=== PATIENT | female | born 1970 | race Caucasian/White ===

== ENCOUNTER → 2016-06-16 | Outpatient (CLI) | payer BC ==
--- NOTE | 2016-06-17 07:44 | MM ---
Reason for exam: screening (asymptomatic). Last mammogram was performed 1 year and 4 months ago. History: Taking hormonal contraceptives for 18 years. Physical Findings: A clinical breast exam by your physician is recommended on an annual basis and results should be correlated with mammographic findings. MG Screening Mammo w CAD Bilateral CC and MLO view(s) were taken. Prior study comparison: February 18, 2015, bilateral MG screening mammo w CAD. January 31, 2008, bilateral digital screening mammogram. There are scattered fibroglandular densities. There is no discrete abnormality. No significant changes when compared with prior studies. ASSESSMENT: Negative, BI-RAD 1 RECOMMENDATION: Routine screening mammogram of both breasts in 1 year.
== END | disposition home or self-care (01) ==
LOC: RADMAMWWP 09:23
PROVIDERS: ATTEND Family Medicine
DX: Z12.31 Encounter for screening mammogram for malignant neoplasm of breast (principal)

== ENCOUNTER → 2016-07-04 | Outpatient (CLI) | payer BC ==
--- NOTE | 2016-07-04 11:02 | FL ---
EXAMINATION TYPE: FL barium swallow DATE OF EXAM: 07/04/2016 10:53 AM COMPARISON: NONE HISTORY: Dysphasia TECHNIQUE: Fluoroscopy. FINDINGS: Barium and air was swallowed without difficulty and passed and the esophagus without delay. Esophageal peristalsis and motility was normal. There is no evidence of hiatal hernia. No filling def ect or mucosal lesion identified. Upper esophagus demonstrated a prominent posterior impression likely related to cricopharyngeal muscl e at the C5-6 level. No evidence of gastroesophageal reflux. IMPRESSION: 1. No acute process. Prominent cricopharyngeus muscle results in posterior impression of the esophagu s as discussed above.
== END ==
LOC: RADFLWHC 10:13
PROVIDERS: ATTEND Family Medicine
DX: R13.10 Dysphagia, unspecified (principal)
CPT/HCPCS: 74220

== ENCOUNTER → 2017-08-07 | Outpatient (CLI) | payer BC ==
--- NOTE | 2017-08-08 11:34 | MM ---
Reason for exam: screening (asymptomatic). Last mammogram was performed 1 year and 2 months ago. History: Taking hormonal contraceptives for 18 years. Physical Findings: A clinical breast exam by your physician is recommended on an annual basis and results should be correlated with mammographic findings. MG Screening Mammo w CAD Bilateral CC and MLO view(s) were taken. Prior study comparison: June 16, 2016, bilateral MG screening mammo w CAD. February 18, 2015, bilateral MG screening mammo w CAD. There are scattered fibroglandular densities. No suspicious abnormality. No significant changes when compared with prior studies. ASSESSMENT: Negative, BI-RAD 1 RECOMMENDATION: Routine screening mammogram of both breasts in 1 year.
== END | disposition home or self-care (01) ==
LOC: RADMAMWWP 10:12
PROVIDERS: ATTEND Family Medicine
DX: Z12.31 Encounter for screening mammogram for malignant neoplasm of breast (principal)
CPT/HCPCS: 77067

== ENCOUNTER → 2018-09-06 | Outpatient (CLI) | payer BC ==
--- NOTE | 2018-09-07 12:40 | MM ---
Reason for exam: screening (asymptomatic). Last mammogram was performed 1 year and 1 month ago. History: Taking hormonal contraceptives for 18 years. Physical Findings: A clinical breast exam by your physician is recommended on an annual basis and results should be correlated with mammographic findings. MG 3D Screening Mammo W/Cad Bilateral CC and MLO view(s) were taken. Prior study comparison: August 07, 2017, bilateral MG screening mammo w CAD. June 16, 2016, bilateral MG screening mammo w CAD. The breast tissue is heterogeneously dense. This may lower the sensitivity of mammography. There is no discrete abnormality. No significant changes when compared with prior studies. ASSESSMENT: Negative, BI-RAD 1 RECOMMENDATION: Routine screening mammogram of both breasts in 1 year.
== END ==
LOC: RADMAMWWP 09:33
PROVIDERS: ATTEND Family Medicine
DX: Z12.31 Encounter for screening mammogram for malignant neoplasm of breast (principal)
CPT/HCPCS: 77063; 77067

== ENCOUNTER 2020-03-05 08:44 | Day surgery (SDC) | payer BC ==
[2020-03-03 11:20] VITALS: BMI 31.1
--- NOTE | 2020-03-05 07:04 | P.GSHP ---
History of Present Illness H&P Date: 03/05/20 CHIEF COMPLAINT: Colon screen HISTORY OF PRESENT ILLNESS: The patient is a 49-year-old female who presents for colon screen. Lower endoscopy was offered for further evaluation and management. PAST MEDICAL HISTORY: Please see list. PAST SURGICAL HISTORY: Please see list. MEDICATIONS: Please see list. ALLERGIES: Please see list. SOCIAL HISTORY: No illicit drug use FAMILY HISTORY: No reports of Crohn disease or ulcerative colitis. REVIEW OF ORGAN SYSTEMS: CONSTITUTIONAL: No reports of fevers or chills. PHYSICAL EXAM: VITAL SIGNS: Stable GENERAL: Well-developed pleasant in no acute distress. HEENT: No scleral icterus. Extraocular movements grossly intact. Moist buccal mucosa. NECK: Supple without lymphadenopathy. CHEST: Unlabored respirations. Equal bilateral excursions. CARDIOVASCULAR: Regular rate and rhythm. Distal 2+ pulses. ABDOMEN: Soft, nontender, nondistended. MUSCULOSKELETAL: No clubbing, cyanosis, or edema. ASSESSMENT: 1. Colon screen. PLAN: 1. Recommend proceeding with a lower endoscopy Past Medical History Past Medical History: GERD/Reflux Additional Past Medical History / Comment(s): positive cologuard History of Any Multi-Drug Resistant Organisms: None Reported Past Surgical History: Tubal Ligation, Uterine Ablation Additional Past Surgical History / Comment(s): rt carpel tunnel Past Anesthesia/Blood Transfusion Reactions: No Reported Reaction Smoking Status: Never smoker - Past Family History Mother Family Medical History: No Reported History Father Family Medical History: Cancer Additional Family Medical History / Comment(s): esophageal CA. Medications and Allergies Home Medications Medication Instructions Recorded Confirmed Type Ibuprofen 800 mg PO Q8H PRN 03/03/20 03/03/20 History Multivitamins, Thera [Multivitamin 1 tab PO DAILY 03/03/20 03/03/20 History (formulary)] Pantoprazole [Protonix] 40 mg PO QAM 03/03/20 03/03/20 History Allergies Allergy/AdvReac Type Severity Reaction Status Date / Time No Known Allergies Allergy Verified 03/03/20 11:14
[~2020-03-05 08:44] MED LIST: LACTATED RINGERS 1,000 ML IV SCH
[2020-03-05] MEDS ORDERED: LIDOCAINE 1% (10MG/ML) FOR IV START INTRADERMA ONE (09:25)
[2020-03-05 09:35] VITALS: RESP 16; TEMP 98.2
[2020-03-05] MEDS ORDERED: PROPOFOL 10 MG/ML 20 ML VIAL IV ONE (10:01)
--- NOTE | 2020-03-05 10:34 | P.PCN ---
Date of Procedure: 03/05/20 Description of Procedure: PREOPERATIVE DIAGNOSIS: Colonoscopy screening, first POSTOPERATIVE DIAGNOSIS: Sigmoid diverticulosis Pandiverticulosis Internal hemorrhoids, grade 2 External hemorrhoids, grade 2 Sigmoid colon polyp OPERATION: Colonoscopy to the ileocecal valve and appendiceal orifice, cecum Colonoscopy with cold forceps biopsies SURGEON: Alexandra Silverio MD. ANESTHESIA: MAC. INDICATIONS: The patient is an 49-year-old female who presents for first colonoscopy. Benefits and risks were described and informed consent was obtained. DESCRIPTION OF PROCEDURE: The patient had undergone Suprep. She had been brought into the operating room and laid in the left lateral decubitus position. After adequate intravenous sedation, the rectum was examined with 2% lidocaine jelly. External hemorrhoids were encountered. The rectal tone was within normal limits. No lesions were palpated in the rectal vault. An Olympus colonoscope was advanced until the cecum, ileocecal valve and appendiceal orifice were clearly viewed. The prep was excellent. Sigmoid diverticulosis pandiverticulosis was encountered. Colonic polyps were found and removed. No evidence of focal colitis was found. Retroflexion of the scope demonstrated grade 2 internal hemorrhoids without active bleeding or inflammation. The colon was desufflated. The patient had tolerated the procedure well. Withdrawal time was over 6 minutes. FINDINGS: Aronchick preparation quality scale 1 (1-5) Internal hemorrhoids, grade 2 External hemorrhoids, grade 2 No arteriovenous malformations. Sigmoid diverticulosis pandiverticulosis Removal of 1 polyp: - Cold forceps biopsy at 23 cm from the anal verge, 4 mm polyp, sigmoid colon polyp No focal colitis. RECOMMENDATIONS: Repeat colonoscopy 3 years, 2022 Plan - Discharge Summary Discharge Rx Participant: No New Discharge Prescriptions: Continue Pantoprazole [Protonix] 40 mg PO QAM Ibuprofen 800 mg PO Q8H PRN PRN Reason: Pain Multivitamins, Thera [Multivitamin (formulary)] 1 tab PO DAILY Discharge Medication List Ibuprofen 800 mg PO Q8H PRN 03/03/20 [History] Multivitamins, Thera [Multivitamin (formulary)] 1 tab PO DAILY 03/03/20 [History] Pantoprazole [Protonix] 40 mg PO QAM 03/03/20 [History] Follow up Appointment(s)/Referral(s): Alexandra Silverio MD [STAFF PHYSICIAN] - As Needed Patient Instructions/Handouts: Diverticulosis Diet (GEN), Diverticulosis (DC), Colorectal Polyps (DC) Activity/Diet/Wound Care/Special Instructions: Repeat colonoscopy in 3 years, 2022 Discharge Disposition: HOME SELF-CARE
[2020-03-05 10:48] VITALS: BP 133/90; PULSE 79
== END 2020-03-05 11:39 | disposition home or self-care (01) ==
LOC: ORWHC2ENDO 08:44
PROVIDERS: ATTEND Surgery Plastic and Reconstructive Surgery
DX: K63.5 Polyp of colon (principal); K64.1 Second degree hemorrhoids; K64.4 Residual hemorrhoidal skin tags; K57.30 Diverticulosis of large intestine without perforation or abscess without bleeding; K21.9 Gastro-esophageal reflux disease without esophagitis; Z79.899 Other long term (current) drug therapy; Z98.51 Tubal ligation status; Z98.890 Other specified postprocedural states; Z80.0 Family history of malignant neoplasm of digestive organs
CPT/HCPCS: 81025; 88305; 45380; J2704

== ENCOUNTER → 2020-04-14 | Outpatient (CLI) | payer BC ==
--- NOTE | 2020-04-15 10:00 | MM ---
Reason for exam: screening (asymptomatic). Last mammogram was performed 1 year and 7 months ago. History: Taking hormonal contraceptives for 18 years. Physical Findings: A clinical breast exam by your physician is recommended on an annual basis and results should be correlated with mammographic findings. MG 3D Screening Mammo W/Cad Bilateral CC and MLO view(s) were taken. Prior study comparison: September 06, 2018, bilateral MG 3d screening mammo w/cad. August 07, 2017, bilateral MG screening mammo w CAD. There are scattered fibroglandular densities. ASSESSMENT: Benign, BI-RAD 2 RECOMMENDATION: Routine screening mammogram of both breasts in 1 year.
== END | disposition home or self-care (01) ==
LOC: RADMAMWWP 09:38
PROVIDERS: ATTEND Family Medicine
DX: Z12.31 Encounter for screening mammogram for malignant neoplasm of breast (principal)
CPT/HCPCS: 77063; 77067

== ENCOUNTER → 2021-01-05 | Outpatient (CLI) | payer BC | END | disposition home or self-care (01) | LOC: LABWHC1 14:10 | PROVIDERS: ATTEND Family Medicine | DX: Z20.822 Contact with and (suspected) exposure to COVID-19 (principal) | CPT/HCPCS: U0003; C9803; U0005 ==

== ENCOUNTER → 2021-07-23 | Outpatient (CLI) | payer BC ==
--- NOTE | 2021-07-27 14:44 | MM ---
Reason for exam: screening (asymptomatic). Last mammogram was performed 1 year and 3 months ago. History: Patient is postmenopausal. Took hormonal contraceptives for 18 years. Physical Findings: A clinical breast exam by your physician is recommended on an annual basis and results should be correlated with mammographic findings. MG 3D Screening Mammo W/Cad Bilateral CC and MLO view(s) were taken. XCCL view(s) were taken of the left breast. Prior study comparison: April 14, 2020, bilateral MG 3d screening mammo w/cad. September 06, 2018, bilateral MG 3d screening mammo w/cad. There are scattered fibroglandular densities. There are benign appearing round calcifications bilaterally. There is no discrete abnormality. ASSESSMENT: Benign, BI-RAD 2 RECOMMENDATION: Routine screening mammogram of both breasts in 1 year.
== END | disposition home or self-care (01) ==
LOC: RADMAMWWP 09:30
PROVIDERS: ATTEND Family Medicine
DX: Z12.31 Encounter for screening mammogram for malignant neoplasm of breast (principal)
CPT/HCPCS: 77063; 77067

== ENCOUNTER → 2022-09-21 | Outpatient (CLI) | payer BC ==
--- NOTE | 2022-09-23 09:13 | MM ---
Reason for Exam: Screening (asymptomatic). Last mammogram was performed 1 year(s) and 2 month(s) ago. Patient History: Menarche at age 11. First Full-Term at age 25. Postmenopausal. Patient has history of breast feeding. Patient used Hormonal Contraceptives for 18 years. Risk Values: Bárbara 5 year model risk: 1.2%. NCI Lifetime model risk: 9.6%. Prior Study Comparison: 09/06/2018 Bilateral Screening Mammogram, [facility]. 04/14/2020 Bilateral Screening Mammogram, [facility]. 07/23/2021 Bilateral Screening Mammogram, [facility]. Tissue Density: There are scattered fibroglandular densities. Findings: Analyzed By CAD. There is no suspicious group of microcalcifications or new suspicious mass in either breast. Overall Assessment: Negative, BI-RAD 1 Management: Screening Mammogram of both breasts in [address] [facility] will attempt to contact patient to return for supplemental views and ultrasound if indicated. Patient should continue monthly self-breast exams. A clinical breast exam by your physician is recommended on an annual basis. This exam should not preclude additional follow-up of suspicious palpable abnormalities. Note on Bárbara scores and lifetime risk: 1. A Bárbara score greater than 3% is considered moderate risk. If this is the case, consider specialist referral to assess eligibility for a risk reducing agent. 2. If overall lifetime risk for the development of breast cancer is 20% or higher, the patient may qualify for future screening with alternating mammogram and breast MRI. Electronically signed and approved by: Prakash Urban DO
== END | disposition home or self-care (01) ==
LOC: RADMAMWWP 10:13 → MERGE 10:20
PROVIDERS: ATTEND Family Medicine
DX: Z12.31 Encounter for screening mammogram for malignant neoplasm of breast (principal); Z78.0 Asymptomatic menopausal state
CPT/HCPCS: 77063; 77067

== ENCOUNTER 2023-03-29 09:13 | Day surgery (SDC) | payer BC ==
--- NOTE | 2023-03-29 08:21 | P.GSHP ---
History of Present Illness H&P Date: 03/29/23 CHIEF COMPLAINT: Colon screen HISTORY OF PRESENT ILLNESS: The patient is a 52-year-old female who presents for colon screen. Lower endoscopy was offered for further evaluation and management. PAST MEDICAL HISTORY: Please see list. PAST SURGICAL HISTORY: Please see list. MEDICATIONS: Please see list. ALLERGIES: Please see list. SOCIAL HISTORY: No illicit drug use FAMILY HISTORY: No reports of Crohn disease or ulcerative colitis. REVIEW OF ORGAN SYSTEMS: CONSTITUTIONAL: No reports of fevers or chills. PHYSICAL EXAM: VITAL SIGNS: Stable GENERAL: Well-developed pleasant in no acute distress. HEENT: No scleral icterus. Extraocular movements grossly intact. Moist buccal mucosa. NECK: Supple without lymphadenopathy. CHEST: Unlabored respirations. Equal bilateral excursions. CARDIOVASCULAR: Regular rate and rhythm. Distal 2+ pulses. ABDOMEN: Soft, nontender, nondistended. MUSCULOSKELETAL: No clubbing, cyanosis, or edema. ASSESSMENT: 1. Colon screen. PLAN: 1. Recommend proceeding with a lower endoscopy Past Medical History Past Medical History: GERD/Reflux Additional Past Medical History / Comment(s): hx. colon polyps History of Any Multi-Drug Resistant Organisms: None Reported Past Surgical History: Orthopedic Surgery, Tubal Ligation, Uterine Ablation Additional Past Surgical History / Comment(s): rt carpel tunnel, colonoscopy Past Anesthesia/Blood Transfusion Reactions: No Reported Reaction Smoking Status: Never smoker - Past Family History Mother Family Medical History: No Reported History Father Family Medical History: Cancer Additional Family Medical History / Comment(s): esophageal CA. Medications and Allergies Home Medications Medication Instructions Recorded Confirmed Type Multivitamins, Thera [Multivitamin 1 tab PO DAILY 03/03/20 03/24/23 History (formulary)] Pantoprazole [Protonix] 40 mg PO QAM PRN 03/03/20 03/24/23 History Cyanocobalamin [Vitamin B-12] 500 mcg PO DAILY 03/24/23 03/24/23 History L.acidoph,Paracasei, B.lactis 1 each PO DAILY 03/24/23 03/24/23 History [Probiotic] Multivitamins, Thera [Multivitamin 1 tab PO DAILY 03/24/23 03/24/23 History (formulary)] Semaglutide [Wegovy] 1 mg SQ TH 03/24/23 03/24/23 History Soy Isofla/Blk Cohosh/Mag Bark 155 mg PO DAILY 03/24/23 03/24/23 History [Estroven 155 mg Capsule] Allergies Allergy/AdvReac Type Severity Reaction Status Date / Time No Known Allergies Allergy Verified 03/24/23 16:07
[~2023-03-29 09:13] MED LIST changes: +LIDOCAINE 1% (10MG/ML) FOR IV START INTRADERMA PRN
[2023-03-29 09:52] VITALS: TEMP 98.4
[2023-03-29 09:57] LABS: Glucose,Whole Blood 76 mg/dL (70-110)
[2023-03-29] MEDS ORDERED: PROPOFOL 10 MG/ML 20 ML VIAL IV ONE (10:30)
--- NOTE | 2023-03-29 10:55 | P.PCN ---
Date of Procedure: 03/29/23 Description of Procedure: PREOPERATIVE DIAGNOSIS: Personal history colon polyps Colonoscopy screening. POSTOPERATIVE DIAGNOSIS: Colonoscopy screening. Diverticulosis, scattered. OPERATION: Colonoscopy to the cecum, ileocecal valve and appendiceal orifice. SURGEON: Alexandra Silverio MD. ANESTHESIA: MAC. INDICATIONS: The patient is a 52-year-old female who presents for colonoscopy screening. Benefits and risks were described and informed consent was obtained. DESCRIPTION OF PROCEDURE: The patient had undergone Sutab prep. The patient had been brought into the operating room and laid in the left lateral decubitus position. After adequate intravenous sedation, the rectum was examined with 2% lidocaine jelly. External hemorrhoids were encountered. The rectal tone was within normal limits. No lesions were palpated in the rectal vault. An Olympus colonoscope was advanced until the cecum, ileocecal valve and appendiceal orifice were clearly viewed. The prep was excellent. Scattered diverticulosis was encountered. No colonic polyps were found. No evidence of focal colitis was found. Retroflexion of the scope demonstrated grade 2 internal hemorrhoids without active bleeding or inflammation. The colon was desufflated. The patient had tolerated the procedure well. Withdrawal time was over 6 minutes. FINDINGS: Aronchick preparation quality scale 1 (1-5) Internal hemorrhoids, grade 2 External prolapsed hemorrhoids, grade 2 Sigmoid diverticulosis No arteriovenous malformations. No adenomatous polyps. No focal colitis. RECOMMENDATIONS: Lower endoscopy 5 years, 2027 Plan - Discharge Summary Discharge Rx Participant: No New Discharge Prescriptions: Continue Pantoprazole [Protonix] 40 mg PO QAM PRN PRN Reason: Heartburn Multivitamins, Thera [Multivitamin (formulary)] 1 tab PO DAILY L.acidoph,Paracasei, B.lactis [Probiotic] 1 each PO DAILY Multivitamins, Thera [Multivitamin (formulary)] 1 tab PO DAILY Cyanocobalamin [Vitamin B-12] 500 mcg PO DAILY Soy Isofla/Blk Cohosh/Mag Bark [Estroven 155 mg Capsule] 155 mg PO DAILY Semaglutide [Wegovy] 1 mg SQ TH Discharge Medication List Multivitamins, Thera [Multivitamin (formulary)] 1 tab PO DAILY 03/03/20 [History] Pantoprazole [Protonix] 40 mg PO QAM PRN 03/03/20 [History] Cyanocobalamin [Vitamin B-12] 500 mcg PO DAILY 03/24/23 [History] L.acidoph,Paracasei, B.lactis [Probiotic] 1 each PO DAILY 03/24/23 [History] Multivitamins, Thera [Multivitamin (formulary)] 1 tab PO DAILY 03/24/23 [History] Semaglutide [Wegovy] 1 mg SQ TH 03/24/23 [History] Soy Isofla/Blk Cohosh/Mag Bark [Estroven 155 mg Capsule] 155 mg PO DAILY 03/24/23 [History] Follow up Appointment(s)/Referral(s): Alexandra Silverio MD [STAFF PHYSICIAN] - As Needed Patient Instructions/Handouts: *Surgery [facility] - (Anesthesia) Discharge Instructions Outpatient Surgery, Hemorrhoids (ED), Diverticulosis (DC), Diverticulosis Diet (GEN), Colonoscopy (DC) Activity/Diet/Wound Care/Special Instructions: Repeat colonoscopy 5 years, 2027 Discharge Disposition: HOME SELF-CARE
[2023-03-29 11:18] VITALS: BP 109/78; PULSE 78; RESP 18
== END 2023-03-29 11:59 | disposition home or self-care (01) ==
LOC: ORWHC2ENDO 09:13
PROVIDERS: ATTEND Surgery Plastic and Reconstructive Surgery
DX: Z12.11 Encounter for screening for malignant neoplasm of colon (principal); K64.1 Second degree hemorrhoids; K57.30 Diverticulosis of large intestine without perforation or abscess without bleeding; K21.9 Gastro-esophageal reflux disease without esophagitis; Z98.51 Tubal ligation status; Z80.9 Family history of malignant neoplasm, unspecified; Z79.1 Long term (current) use of non-steroidal anti-inflammatories (NSAID); Z86.010 Personal history of colon polyps; Z79.899 Other long term (current) drug therapy; Z98.890 Other specified postprocedural states
CPT/HCPCS: 81025; 45378; J2704

== ENCOUNTER → 2024-08-28 | Outpatient (CLI) | payer BC ==
--- NOTE | 2024-08-28 10:38 | MM ---
Reason for Exam: Screening (asymptomatic). Last mammogram was performed 1 year(s) and 11 month(s) ago. Patient History: Menarche at age 11. First Full-Term at age 25. Postmenopausal. Patient has history of breast feeding. Patient used Hormonal Contraceptives for 18 years. Risk Values: Bárbara 5 year model risk: 1.3%. NCI Lifetime model risk: 9.3%. Prior Study Comparison: 04/14/2020 Bilateral Screening Mammogram, [facility]. 07/23/2021 Bilateral Screening Mammogram, [facility]. 09/21/2022 Bilateral MG 3D screening mammo w/cad, [facility]. Tissue Density: There are scattered areas of fibroglandular density. Findings: Analyzed By CAD. There is no suspicious group of microcalcifications or new suspicious mass in either breast. Overall Assessment: Negative, BI-RAD 1 Management: Screening Mammogram of both breasts in 1 year. . Patient should continue monthly self-breast exams. A clinical breast exam by your physician is recommended on an annual basis. This exam should not preclude additional follow-up of suspicious palpable abnormalities. Note on Bárbara scores and lifetime risk: 1. A Bárbara score greater than 3% is considered moderate risk. If this is the case, consider specialist referral to assess eligibility for a risk reducing agent. 2. If overall lifetime risk for the development of breast cancer is 20% or higher, the patient may qualify for future screening with alternating mammogram and breast MRI. [facility], , 08/28/2024 10:35 AM. Electronically signed and approved by: Florentino Zaragoza M.D. Radiolog[facility]
== END | disposition home or self-care (01) ==
LOC: RADMAMWWP 10:07
PROVIDERS: ATTEND Family Medicine
DX: Z12.31 Encounter for screening mammogram for malignant neoplasm of breast (principal); R92.323 Mammographic fibroglandular density, bilateral breasts; Z78.0 Asymptomatic menopausal state; Z92.0 Personal history of contraception
CPT/HCPCS: 77063; 77067